=== PATIENT | female | born 1955 | race Caucasian/White ===

== ENCOUNTER 2020-01-10 15:42 | Inpatient (IN) | payer MEDICARE ==
[~2020-01-10] VITALS: Ht 162.6 cm; Wt 81.3 kg
[~2020-01-10 15:42] MED LIST: ANAPROX DS550 MG PO; HYDROCODON-ACE1 EACH PO; KEFLEX500 MG PO; MEDROL DOSPAK21 TA1 PO; NAPROXEN 500MG500 MG PO; NOHOMEMEDICATIONS; OS-CAL 500+D31 EAC1 PO; SYNTHROID137 MC1 PO; VALIUM5 MG PO; VICODIN 5-5001 EACH PO; VICODIN PO; ZANAFLEX4 M1 PO
[2020-01-10 16:03] VITALS: BP 106/64
[2020-01-10] MEDS ORDERED: OMEPRAZOLE40 MG PO (16:08)
[2020-01-10] MEDS ORDERED: CABOMETYX20 MG PO (16:08)
[2020-01-10] MEDS ORDERED: XARELTO20 MG PO (16:09)
[2020-01-10 16:24] LABS: URINE BILIRUBIN NEGATIVE (Negative); URINE BLOOD NEGATIVE (Negative); URINE COLOR YELLOW; URINE GLUCOSE-RANDOM NEGATIVE (Negative); URINE KETONES NEGATIVE (Negative); URINE LEUKOCYTES-REFLEX TRACE (Negative); URINE NITRITE-REFLEX NEGATIVE (Negative); URINE PROTEIN TRACE (Negative)
[2020-01-10 16:25] LABS: URINE CLARITY CLOUDY
[2020-01-10 16:30] LABS: BACTERIA-REFLEX >30 Many /HPF (None Seen); CASTS None Seen /LPF (None Seen); SQUAMOUS 0-3 Few /LPF (0-3); URINE RBC None Seen /HPF (0-2); URINE WBC-REFLEX >25 Many /HPF (0-5)
[2020-01-10 16:31] LABS: CRYSTALS None Seen /LPF (None Seen)
[2020-01-10 16:40] LABS: ABSOLUTE BASOPHILS 0.1 thou/uL (0.0-0.2); ABSOLUTE LYMPHOCYTES 0.5 thou/uL (0.8-5.3); ABSOLUTE MONOCYTES 0.2 thou/uL (0.0-1.2); ABSOLUTE NEUTROPHILS 3.5 thou/uL (1.6-8.1); BASOPHILS 1.2 %; EOSINOPHILS 0.4 %; HEMATOCRIT 27.3 % (37.0-47.0); HEMOGLOBIN 9.3 gm/dL (12.0-15.0); LYMPHOCYTES 11.9 %; MCH 28.7 pg (26.0-34.0); MCV 84.3 fL (80.0-100.0); MONOCYTES 4.6 %; MPV 7.4 fl. (7.2-11.1); NUCLEATED RBCS 0 /100WBC; PLATELET COUNT* 222 thou/uL (150-400); POLYS 81.9 %; RBC 3.24 mil/uL (4.20-5.00); WBC 4.2 thou/uL (4.0-11.0)
--- NOTE | 2020-01-10 16:41 | NUR ---
PUREWICK CATHETER APPLIED TO PATIENT.
[2020-01-10 16:56] LABS: CALCIUM 6.5 mg/dL (8.5-10.1); CREATININE 1.1 mg/dL (0.6-1.3)
[2020-01-10 16:58] LABS: APTT 45.8 Seconds (25.0-31.3); INR 2.3; PROTIME 22.7 Seconds (9.20-11.50)
[2020-01-10 17:07] LABS: PLATELET ESTIMATE ADEQUATE
[2020-01-10 17:08] LABS: ALBUMIN 1.6 g/dL (3.4-5.0); ANISOCYTOSIS 1+; MICROCYTES 1+; TOTAL BILIRUBIN 1.4 mg/dL (<0.1-1.0); TOTAL PROTEIN 5.5 g/dL (6.4-8.2)
[2020-01-10 17:09] LABS: POTASSIUM 2.8 mmol/L (3.5-5.1)
[2020-01-10 20:00] VITALS: BP 171/61
[2020-01-10 20:10] VITALS: BP 122/68
[2020-01-10 22:00] VITALS: BP 112/63
[2020-01-11] VITALS (7 sets, daily range): BP systolic 80–169; BP diastolic 61–80
[2020-01-11 04:57] LABS: ABSOLUTE LYMPHOCYTES 0.5 thou/uL (0.8-5.3); ABSOLUTE MONOCYTES 0.2 thou/uL (0.0-1.2); ABSOLUTE NEUTROPHILS 2.8 thou/uL (1.6-8.1); BASOPHILS 0.8 %; EOSINOPHILS 0.8 %; HEMATOCRIT 25.2 % (37.0-47.0); HEMOGLOBIN 8.5 gm/dL (12.0-15.0); LYMPHOCYTES 13.7 %; MCH 28.7 pg (26.0-34.0); MCHC 33.8 g/dL (28.0-37.0); MCV 85.1 fL (80.0-100.0); MONOCYTES 4.6 %; NUCLEATED RBCS 0 /100WBC; PLATELET COUNT* 186 thou/uL (150-400); POLYS 80.1 %; RBC 2.96 mil/uL (4.20-5.00); RDW-CV 26.9 % (10.5-14.5); WBC 3.5 thou/uL (4.0-11.0)
[2020-01-11 05:17] LABS: CALCIUM 6.4 mg/dL (8.5-10.1); MAGNESIUM 1.8 mg/dL (1.8-2.4); POTASSIUM 3.4 mmol/L (3.5-5.1)
--- NOTE | 2020-01-11 08:55 | NUR ---
Interview with patient at bedside. Lives at home with spouse. States spouse helps her with ADLS as needed. She no longer drives. She has W/C, Quad cane, and walker at home. Has HH already but she doesn't remember name of company.
--- NOTE | 2020-01-11 11:04 | NUR ---
ASSUMED CARE OF PATIENT THIS AM AT 0730. PATIENT IS ALERT AND ORIENTED X 4. SHE HAS BEEN TEARFUL AND TALKING IN A CRYING TONE. PATIENT IS INCONTINENT OF STOOL X 1. PATIENT PLACED IN ISOLATION FOR POSSIBLE CDIFF. BP LOW. 300 ML FLUID INFUSION GIVEN. PATIENT'S BP NOW IMPROVED. TELE SHOWS SR WITH OCCASIONAL PVCS.
--- NOTE | 2020-01-11 16:02 | EKG ---
[place] [address] ELECTROCARDIOGRAM REPORT Name: MI CHAUDHARY Room: [address] ADM IN [facility].#: [id number] Admission: 01/10/20 Attend Phys: Delgado Miller, Discharge: Date of : 53 Date of Service: 01/10/20 1613 Report #: [id number] THIS REPORT FOR: //name// [facility] ED Test Date: 2020-01-10 Test Time: 16:13:51 Pat Name: MI CHAUDHARY Department: Room: [facility] Gender: F [employer] B[employer]: ROLAN : 1955 Requested By: Salena Gruber Order Number: [id number] MD: Beto Fletcher Measurements Intervals Arnold Rate: 93 P: 105 OK: 131 QRS: -16 QRSD: 73 T: 166 QT: 392 QTc: 488 Interpretive Statements Sinus rhythm Ventricular premature complex Borderline left axis deviation Low voltage, extremity and precordial leads Nonspecific T abnormalities, lateral leads Borderline prolonged QT interval No previous ECG available for comparison Electronically Signed On 01-11-2020 16:02:31 CDT by Beto Fletcher [email or web address] <ELECTRONICALLY SIGNED> By: Beto Fletcher MD, FAC 01/11/20 1602 1613 1613 Beto Fletcher MD, FAC /EPI
[2020-01-12] VITALS (7 sets, daily range): BP systolic 110–128; BP diastolic 71–79
--- NOTE | 2020-01-12 04:51 | NUR ---
RECEIVED REPORT AND ASSUMED CARE OF PATIENT AT 1900. FULL ASSESSMENT COMPLETED CHARTED. BED LOCKED AND IN LOW POSITION, CALL LIGHT AND PERSONAL ITEMS IN REACH. PT A&OX4, SPO2 94 ON RA, SR ON MONITOR, PT HAS NOT AMBULATED THIS SHIFT.
[2020-01-12 04:56] LABS: ABSOLUTE LYMPHOCYTES 0.5 thou/uL (0.8-5.3); ABSOLUTE MONOCYTES 0.1 thou/uL (0.0-1.2); ABSOLUTE NEUTROPHILS 2.2 thou/uL (1.6-8.1); BASOPHILS 1.4 %; EOSINOPHILS 1.6 %; HEMATOCRIT 23.3 % (37.0-47.0); HEMOGLOBIN 7.8 gm/dL (12.0-15.0); LYMPHOCYTES 17.9 %; MCHC 33.4 g/dL (28.0-37.0); MCV 86.7 fL (80.0-100.0); MPV 7.6 fl. (7.2-11.1); NUCLEATED RBCS 0 /100WBC; PLATELET COUNT* 161 thou/uL (150-400); POLYS 74.1 %; RBC 2.69 mil/uL (4.20-5.00)
[2020-01-12 05:17] LABS: ALBUMIN 1.4 g/dL (3.4-5.0); CALCIUM 6.6 mg/dL (8.5-10.1); CREATININE 1.1 mg/dL (0.6-1.3); POTASSIUM 4.4 mmol/L (3.5-5.1); TOTAL PROTEIN 4.9 g/dL (6.4-8.2)
--- NOTE | 2020-01-12 17:08 | NUR ---
PATIENT RESTING IN BED. NO APPARENT SIGNS OF DISTRESS. PATIENT SUFFERS FROM ANXIETY AND REQUIRES EXTRA TIME FOR REASSURE HER. VSS. UP WITH ASSIST X1. HOURLY ROUNDING COMPLETED FOR PATIENT SAFETY.
[2020-01-13] VITALS: BP 102/57
[2020-01-13 04:00] VITALS: BP 112/70
[2020-01-13 05:07] LABS: ABSOLUTE EOSINOPHILS 0.1 thou/uL (0.0-0.7); ABSOLUTE LYMPHOCYTES 0.5 thou/uL (0.8-5.3); ABSOLUTE MONOCYTES 0.2 thou/uL (0.0-1.2); ABSOLUTE NEUTROPHILS 2.4 thou/uL (1.6-8.1); HEMOGLOBIN 7.5 gm/dL (12.0-15.0); LYMPHOCYTES 14.9 %; MCH 29.2 pg (26.0-34.0); MCHC 33.9 g/dL (28.0-37.0); MONOCYTES 4.9 %; MPV 7.6 fl. (7.2-11.1); NUCLEATED RBCS 0 /100WBC; PLATELET COUNT* 139 thou/uL (150-400); POLYS 77.2 %; RBC 2.56 mil/uL (4.20-5.00); RDW-CV 26.9 % (10.5-14.5); WBC 3.1 thou/uL (4.0-11.0)
--- NOTE | 2020-01-13 05:24 | NUR ---
RECEIVED REPORT AND ASSUMED CARE OF PT AT 1900. FULL ASSESSMENT COMPLETED CHARTED. BED LOCKED AND IN LOW POSITION, CALL LIGHT AND PERSONAL ITEMS IN REACH. NO ACUTE CHANGES THIS SHIFT.
[2020-01-13 05:37] LABS: ALBUMIN 1.2 g/dL (3.4-5.0); CALCIUM 6.8 mg/dL (8.5-10.1); POTASSIUM 4.2 mmol/L (3.5-5.1); TOTAL BILIRUBIN 0.9 mg/dL (<0.1-1.0); TOTAL PROTEIN 4.7 g/dL (6.4-8.2)
[2020-01-13 07:24] LABS: ANISOCYTOSIS 3+; PLATELET ESTIMATE ADEQUATE
[2020-01-13 08:00] VITALS: BP 112/72
[2020-01-13 12:00] VITALS: BP 123/80
--- NOTE | 2020-01-13 12:11 | NUR ---
ASSUMED CARE OF PATIENT THIS AM AT 0730. PATIENT IS ALERT AND ORIENTED X 4. SHE DENIES PAIN THIS AM. TELE SHOWS SR WITH PVCS. IV ANTIBIOTICS CONTINUED. PATIENTS O2 SAT WAS 86% ON ROOM AIR. O2 PLACED AT 2 LITERS. HER SAT IS NOW 97 TO 98%. PATIENT WAS INCONTINENT OF URINE THIS AM. SHE C/O CONTINUED DIARRHEA. PATIENT ENCOURAGED TO TURN Q 2 HR. HER APPETITE REMAINS POOR.
--- NOTE | 2020-01-13 12:15 | NUR ---
PT to see Pt today, CM to follow to determine if home with HH is still a viable dc plan. Pt has poor appetite per nurse and weak. Await therapy evals. Following.
--- NOTE | 2020-01-13 14:22 | NUR ---
informed CM that Pt is in agreement with hospice, order written and on the chart. CM went to speak with Pt, Pt became tearful and stated that she wants to speak with her first. CM to f/u re:hospice tomorrow. Updated nurse.
--- NOTE | 2020-01-13 15:40 | CON ---
[address] [address] CONSULTATION Name: MI CHAUDHARY Room: [address] IN .R.#: [id number] Admission: 01/10/20 Attend Phys: Delgado Miller MD Discharge: Date of : 53 Report #: [id number] THIS REPORT FOR: //name// cc: Beto Crawford John E. DO ~ THIS REPORT FOR: //name// CC: Delgado Crawford DATE OF SERVICE: 01/11/2020 REQUESTING PHYSICIAN: Delgado Miller MD REASON FOR CONSULTATION: Metastatic renal cell carcinoma. HISTORY OF PRESENT ILLNESS: The patient is an unfortunate 64-year-old woman with metastatic renal cell carcinoma, who is under care of Dr. Loyola and Dr. Meyer. She was initially treated with Keytruda and axitinib for first line of therapy by Dr. Loyola. After she progressed through this treatment, she was seen by Dr. Meyer on 12/28/2019 who recommended cabozantinib. The patient has been on cabozantinib. She was admitted to the hospital now with increasing dyspnea, increasing weakness. She was found to have severe UTI, pneumonitis. Oncology consult is requested. The patient is lethargic. She opens eyes, but she is not able to give me any history. According to notes, she is thinking to discontinue all care and wants to be DNR. PAST MEDICAL HISTORY: Significant for metastatic renal cell carcinoma to lung, hypothyroidism. REVIEW OF SYSTEMS: Unable to obtain. FAMILY HISTORY: Unable to obtain. PHYSICAL EXAMINATION: GENERAL: Reveals a thin woman, appearing chronically ill. VITAL SIGNS: Blood pressure 121/80, heart rate is 82, temperature 97.2. NECK: Supple. There is no supraclavicular lymphadenopathy. ABDOMEN: Soft. EXTREMITIES: Lower extremities, no edema. SKIN: Does not reveal any rash. LABORATORY DATA: White count 3.5, hemoglobin 8.5, platelets 180. Sodium 137, potassium 3.4, BUN 11, creatinine 1.0, total bilirubin 1.4, alkaline phosphatase 137. BNP 3670. TSH 67.8. Urinalysis shows large [place] [address] CONSULTATION Name: MI CHAUDHARY Room: [address]#: [id number] Admission: 01/10/20 Attend Phys: Delgado Miller MD Discharge: Date of : 53 Report #: [id number] ASSESSMENT AND PLAN: 1. Metastatic renal cell carcinoma. The patient is on oral targeted therapy. She appears chronically ill and somewhat cachectic. According to notes, her prognosis is poor. I do not have any suggestions at this point. If the patient wants to consider discontinuing care, this will be appropriate. If she wants to continue cabozantinib, she can continue cabozantinib after she recovers from current condition. 2. UTI. Agree with management. 3. Elevated TSH, most likely secondary to recent immunotherapy. 4. 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 Continue to monitor. Thank you very much for allowing me to participate in care of this patient. <ELECTRONICALLY SIGNED> By: Matthew Hicks MD 01/13/20 1540 [id number] [id number] Hicks MD /nt
[2020-01-13 17:44] VITALS: BP 117/68
[2020-01-13 20:10] VITALS: BP 117/68
[2020-01-14] VITALS: BP 116/76
[2020-01-14 04:00] VITALS: BP 120/75
--- NOTE | 2020-01-14 05:41 | NUR ---
RECEIVED REPORT AND ASSUMED CARE OF PATIENT AT 2220. FULL ASSESSMENT COMPLETED CHARTED. BED LOCKED AND IN LOW POSITION, CALL LIGHT AND PERSONAL ITEMS IN REACH. PT A&OX4, ON 2.5L NC (PT SATS 77 WITHOUT O2).
[2020-01-14 08:00] VITALS: BP 121/79
[2020-01-14 12:10] VITALS: BP 102/65
--- NOTE | 2020-01-14 13:42 | NUR ---
CM spoke with both Pt and in room. voiced [place], Pt did not respond when CM asked what she wants to do, Pt did say that she is concerned about not being able to take her chemo while in skilled. CM encouraged Pt and to discuss with their children what POC they want for Pt. Hospice order on chart if Pt decides that she wants hospice vs HH, Pt is current with [facility] f:[phone] p:[phone]. Updated nurse.
[2020-01-14 16:06] VITALS: BP 108/66
--- NOTE | 2020-01-14 16:08 | NUR ---
VS CHARTED, A&OX4- ANXIOUS, NC@2L, SR W/PVCS ON TELE, BEDREST- UP WITH ONE TO COMMODE, HOURLY ROUNDING PERFORMED, POSSESSIONS AND CALL LIGHT WITHIN REACH, USES BEDPAN FOR B&B
[2020-01-14 20:34] VITALS: BP 119/68
[2020-01-15 00:35] VITALS: BP 109/50
[2020-01-15 04:07] VITALS: BP 100/67
[2020-01-15 05:17] LABS: ABSOLUTE LYMPHOCYTES 0.5 thou/uL (0.8-5.3); ABSOLUTE MONOCYTES 0.2 thou/uL (0.0-1.2); BASOPHILS 0.8 %; EOSINOPHILS 1.1 %; HEMATOCRIT 25.9 % (37.0-47.0); HEMOGLOBIN 8.8 gm/dL (12.0-15.0); LYMPHOCYTES 13.6 %; MCH 29.5 pg (26.0-34.0); MCV 86.7 fL (80.0-100.0); MONOCYTES 5.6 %; NUCLEATED RBCS 0 /100WBC; PLATELET COUNT* 146 thou/uL (150-400); POLYS 78.9 %; RBC 2.99 mil/uL (4.20-5.00); RDW-CV 26.1 % (10.5-14.5); WBC 3.8 thou/uL (4.0-11.0)
[2020-01-15 05:51] LABS: ALBUMIN 1.1 g/dL (3.4-5.0); CALCIUM 7.1 mg/dL (8.5-10.1); CREATININE 0.8 mg/dL (0.6-1.3); MAGNESIUM 1.8 mg/dL (1.8-2.4); POTASSIUM 3.8 mmol/L (3.5-5.1); TOTAL BILIRUBIN 0.9 mg/dL (<0.1-1.0); TOTAL PROTEIN 4.8 g/dL (6.4-8.2)
[2020-01-15 07:03] LABS: PLATELET ESTIMATE DECREASED
[2020-01-15 07:05] LABS: ANISOCYTOSIS 3+; HYPOCHROMASIA 2+; MICROCYTES 2+; SCHISTOCYTES 1+
--- NOTE | 2020-01-15 08:14 | NUR ---
PT IS ABLE TO COMMUNICATE HER NEEDS TO STAFF EFFECTIVELY. SHE HAS DENIED THE NEED FOR PAIN MEDICATION UP TO 0700 THIS MORNING. PT SEEMS DEPRESSED AND HAS A FLAT AFFECT.
[2020-01-15 08:15] VITALS: BP 106/57
[2020-01-15 12:29] VITALS: BP 84/36
[2020-01-15 15:57] VITALS: BP 87/50
--- NOTE | 2020-01-15 19:42 | NUR ---
I ASSUMED CARE OF THE PATIENT AT 0700. SHE IS ALERT AND ORIENTED X4 AND IS UP WITH ASSIST OF 1 AND A WALKER. BED IS IN THE LOW LOCKED POSITION AND CALL LIGHT IS IN REACH. HOURLY ROUNDING IS COMPLETED AND PATIENT NEEDS ARE MET. PAIN IS DENIED. AFFECT IS VERY FLAT AND DEPRESSED. DAUGHTER IS A [employer] NURSE AND IS AT THE BEDSIDE MOST OF THE DAY. OXYGEN WAS TITRATED DOWN AND REMOVED FOR MOST OF THE DAY. AROUND 1800, IT WAS PLACED BACK ON AT 0.5 LITERS WHICH TAKES HER FROM 86%-98%. NEW PULSE OX WAS PLACED ON THE FOOT UNDER A SOCK TO KEEP HER SKIN WARM. SHE IS REPOSITIONED EVERY 2 HOURS. SKIN IS INTACT. SHE DID NOT HAVE A BOWEL MOVEMENT TODAY. NEW IV WAS PLACED IN THE LEFT WRIST AND IS BEING USED FOR ZOSYN. DAUGHTER IS AT THE BEDSIDE WAITING TO SEE IF HEMOC IS COMING TODAY. SHE IS VERY PALE AND TIRED. WILL CONTINUE TO MONITOR.
[2020-01-15 20:00] VITALS: BP 123/80
[2020-01-16] VITALS (7 sets, daily range): BP systolic 94–112; BP diastolic 54–76
--- NOTE | 2020-01-16 16:03 | NUR ---
PT HAS RESTED QUIETLY, NO C/O PAIN OR DISTRESS. PT EXPERIENCED BRIEF NOSEBLEED WITH SCANT AMOUNT OF BLOODY DISCHARGE. NOSE BLEED STOPPED WITH MILD COMPRESSION APPLIED BY PATIENT.
--- NOTE | 2020-01-16 17:42 | NUR ---
CARING FOR PT [phone]. ASSESSMENT COMPLETED. PT VERY WEAK WITH LOW VOICE. AT BEDSIDE. ASSISTING WITH REPOSITIONING. JACE ANKLES AND FEET WITH 2+ EDEMA. TELEMETRY ON SHOWING SR. NO COMPLAINTS VOICED.
[2020-01-17] VITALS: BP 103/61
[2020-01-17 04:00] VITALS: BP 101/53
[2020-01-17 05:15] LABS: ALBUMIN 1.2 g/dL (3.4-5.0); CALCIUM 7.1 mg/dL (8.5-10.1); CREATININE 0.9 mg/dL (0.6-1.3); MAGNESIUM 1.8 mg/dL (1.8-2.4); POTASSIUM 3.7 mmol/L (3.5-5.1); TOTAL BILIRUBIN 0.9 mg/dL (<0.1-1.0); TOTAL PROTEIN 4.5 g/dL (6.4-8.2)
[2020-01-17 06:23] LABS: HEMATOCRIT 24.4 % (37.0-47.0); HEMOGLOBIN 8.2 gm/dL (12.0-15.0); MCH 29.6 pg (26.0-34.0); MCHC 33.5 g/dL (28.0-37.0); MCV 88.4 fL (80.0-100.0); MPV 8.5 fl. (7.2-11.1); RBC 2.76 mil/uL (4.20-5.00); RDW-CV 26.1 % (10.5-14.5)
[2020-01-17 08:00] VITALS: BP 114/61
[2020-01-17 12:00] VITALS: BP 98/59
--- NOTE | 2020-01-17 16:47 | NUR ---
JERRY RESTING IN BED. UP WITH ASSIST X1. PRIMARY MD HAD A LONG DICUSSONO WITH PATIENT AND HER REGARDIONG HER EXPECTATIONS FOR TREATMETN AT HOME AND ANY DESIRE THEY HAVE FOR REHAB, [facility], HOSPICE. VSS AND PATINET IN NOAPPARNET SIGNS OD ACUTE DISTRESS AT THIS TIME.
[2020-01-17 20:00] VITALS: BP 105/66
[2020-01-18 00:30] VITALS: BP 104/66
[2020-01-18 04:30] VITALS: BP 106/61
[2020-01-18 05:15] LABS: ABSOLUTE LYMPHOCYTES 0.4 thou/uL (0.8-5.3); ABSOLUTE MONOCYTES 0.2 thou/uL (0.0-1.2); ABSOLUTE NEUTROPHILS 3.4 thou/uL (1.6-8.1); BASOPHILS 1.1 %; EOSINOPHILS 1.2 %; HEMATOCRIT 21.7 % (37.0-47.0); HEMOGLOBIN 7.4 gm/dL (12.0-15.0); LYMPHOCYTES 10.3 %; MCH 29.8 pg (26.0-34.0); MCHC 34.3 g/dL (28.0-37.0); MONOCYTES 5.1 %; MPV 8.1 fl. (7.2-11.1); NUCLEATED RBCS 0 /100WBC; PLATELET COUNT* 120 thou/uL (150-400); POLYS 82.3 %; RBC 2.49 mil/uL (4.20-5.00); RDW-CV 26.1 % (10.5-14.5); WBC 4.1 thou/uL (4.0-11.0)
[2020-01-18 05:46] LABS: ALBUMIN 1.7 g/dL (3.4-5.0); CREATININE 0.9 mg/dL (0.6-1.3); MAGNESIUM 2.1 mg/dL (1.8-2.4); POTASSIUM 3.2 mmol/L (3.5-5.1); TOTAL BILIRUBIN 1.1 mg/dL (<0.1-1.0); TOTAL PROTEIN 4.9 g/dL (6.4-8.2)
[2020-01-18 06:39] LABS: ANISOCYTOSIS 2+; MICROCYTES 1+; PLATELET ESTIMATE ADEQUATE
[2020-01-18 08:00] VITALS: BP 95/56
[2020-01-18 12:24] VITALS: BP 96/59
[2020-01-18 15:58] VITALS: BP 102/62
[2020-01-18 17:37] LABS: CALCIUM 7.3 mg/dL (8.5-10.1); CREATININE 1.1 mg/dL (0.6-1.3); POTASSIUM 3.5 mmol/L (3.5-5.1)
--- NOTE | 2020-01-18 18:59 | NUR ---
PATIENT RESTING IN BED. VSS. UP WITH ASSSIT X1.
[2020-01-18 20:00] VITALS: BP 111/63
[2020-01-19] VITALS: BP 118/63
[2020-01-19 04:00] VITALS: BP 94/59
[2020-01-19 05:22] LABS: ABSOLUTE LYMPHOCYTES 0.4 thou/uL (0.8-5.3); ABSOLUTE MONOCYTES 0.2 thou/uL (0.0-1.2); ABSOLUTE NEUTROPHILS 3.2 thou/uL (1.6-8.1); BASOPHILS 1.1 %; EOSINOPHILS 1.1 %; HEMATOCRIT 21.5 % (37.0-47.0); HEMOGLOBIN 7.3 gm/dL (12.0-15.0); LYMPHOCYTES 10.5 %; MCHC 34.2 g/dL (28.0-37.0); MCV 87.8 fL (80.0-100.0); MONOCYTES 6.2 %; MPV 8.3 fl. (7.2-11.1); NUCLEATED RBCS 0 /100WBC; PLATELET COUNT* 119 thou/uL (150-400); POLYS 81.1 %; RBC 2.45 mil/uL (4.20-5.00); RDW-CV 26.6 % (10.5-14.5); WBC 3.9 thou/uL (4.0-11.0)
[2020-01-19 05:39] LABS: ALBUMIN 1.8 g/dL (3.4-5.0); CREATININE 0.9 mg/dL (0.6-1.3); MAGNESIUM 1.9 mg/dL (1.8-2.4); POTASSIUM 3.7 mmol/L (3.5-5.1); TOTAL BILIRUBIN 1.3 mg/dL (<0.1-1.0)
[2020-01-19 08:00] VITALS: BP 96/65
[2020-01-19 08:01] LABS: POLYCHROMASIA 1+
[2020-01-19 08:02] LABS: ANISOCYTOSIS 3+; PLATELET ESTIMATE ADEQUATE
--- NOTE | 2020-01-19 09:48 | NUR ---
RECIEVED REPORT AROUND 729. ASSUMED CARE. PT LYING LYING BED. PT ANXIOUS. VS AND ASSESSMENT CHARTED. PT REPEATING "WHERE IS IT" "WHERE DOES IT GO" THIS AM. PT ABLE TO ANSWER ORIENTATION QUESTIONS. PT STATED "NO" TO ANY PAIN. AM MEDS GIVEN THIS AM. MEDICATION PER JUN. IV INTACT LEFT WRIST. HEART MONITOR ATTACHED. CALL LIGHT WITHIN REACH. WILL CONTINUE TO MONITOR.
[2020-01-19 13:01] VITALS: BP 98/57
[2020-01-19 15:58] VITALS: BP 91/62
--- NOTE | 2020-01-19 18:12 | NUR ---
NO NEW CHANGES FROM MORNING ASSESSMENT. SON VISITED THIS SHIFT. AT BEDSIDE. PT LYING IN BED. MEDICATIONS PER JUN. HOURLY ROUNDING PERFORMED. IV INTACT. LEFT WRIST. HEART MONITOR ATTACHED AT SR WITH PVC'S. PT ON 1L NC. NO REPORTS OF PAIN. CALL LIGHT WITHIN REACH. WILL CONTINUE TO MONITOR.
[2020-01-19 19:30] VITALS: BP 125/68
[2020-01-20] VITALS (10 sets, daily range): BP systolic 89–116; BP diastolic 41–84
[2020-01-20 05:16] LABS: ABSOLUTE LYMPHOCYTES 0.4 thou/uL (0.8-5.3); ABSOLUTE MONOCYTES 0.3 thou/uL (0.0-1.2); BASOPHILS 1.1 %; HEMATOCRIT 20.1 % (37.0-47.0); LYMPHOCYTES 11.6 %; MCHC 33.7 g/dL (28.0-37.0); MCV 89.2 fL (80.0-100.0); MONOCYTES 6.8 %; MPV 8.4 fl. (7.2-11.1); NUCLEATED RBCS 0 /100WBC; PLATELET COUNT* 123 thou/uL (150-400); POLYS 79.5 %; RBC 2.26 mil/uL (4.20-5.00); RDW-CV 26.2 % (10.5-14.5); WBC 3.8 thou/uL (4.0-11.0)
[2020-01-20 05:23] LABS: CREATININE 0.8 mg/dL (0.6-1.3); MAGNESIUM 1.9 mg/dL (1.8-2.4); POTASSIUM 3.7 mmol/L (3.5-5.1)
[2020-01-20 05:24] LABS: HEMOGLOBIN 6.8 gm/dL (12.0-15.0)
[2020-01-20 06:46] LABS: HYPOCHROMASIA 2+; PLATELET ESTIMATE DECREASED
[2020-01-20 06:47] LABS: ANISOCYTOSIS 3+; MACROCYTES 1+; MICROCYTES 2+
[2020-01-20] MEDS ORDERED: MIDODRINE HCL 55 M1 PO (09:49)
[2020-01-20] MEDS ORDERED: FLORASTOR250 MG PO (09:49)
[2020-01-20] MEDS ORDERED: MARINOL 2.5 MG2.5 M1 PO (09:49)
--- NOTE | 2020-01-20 12:08 | NUR ---
0730 ASSUMED CARE OF PATIENT. PLEASE SEE DOCUMENTED ASSESSMENT. PT TO RECEIVE A UNIT OF BLOOD. CONSENT OBTAINED.
--- NOTE | 2020-01-20 13:11 | CON ---
[address] [address] CONSULTATION Name: JETMI Brody Room: [address] IN [facility]#: [id number] Admission: 01/10/20 Attend Phys: Delgado Miller MD Discharge: Date of : 53 Report #: [id number] THIS REPORT FOR: //name// cc: Beto Crawford John E. DO ~ THIS REPORT FOR: //name// CC: Delgado Crawford DATE OF SERVICE: 01/14/2020 CONSULT REQUESTED BY: Dr. Contreras. INDICATION FOR CONSULTATION: Renal cell carcinoma with lung metastasis. HISTORY OF PRESENT ILLNESS: This is a 64-year-old female with past medical history includes a history of renal cell carcinoma with lung metastasis. This time, the patient is admitted on 01/10/2020. The patient is noted to have a UTI upon admission. The patient is also being treated for pulmonary infiltrates. Currently, the patient is hemodynamically stable. Blood pressure is within the normal range, although towards the lower side. She is on 2 liters of oxygen and is maintaining O2 saturation in the high 90s. She does have swelling of lower extremities, which is more on the left than the right. The patient is on anticoagulation with Xarelto. The reason why the patient is on anticoagulation is not known to me at this time. The patient does report shortness of breath, but does not report any recent change in shortness of breath. She does have a cough, but not much sputum. There is no chest pain. She does not have upper respiratory complaints. The patient is afebrile. REVIEW OF SYSTEMS: I asked her 12 questions for review of systems. The patient answers to the negative except as mentioned above. PAST MEDICAL HISTORY: Renal cell carcinoma with metastasis to lungs, thyroidectomy, goiter, dizziness/problems with balance, broken ankle in 2010. The patient is noted to be on Xarelto 20 mg daily at home. The reason why she was started on Xarelto is not known to me. Severe malnutrition. The patient's albumin is 1.2. SOCIAL HISTORY: There is no known history of smoking, ethanol abuse or drug abuse. CURRENT MEDICATIONS: List in [facility] reviewed. HOME MEDICATIONS: List also in [facility] [place] [address] CONSULTATION Name: MI CHAUDHARY Brody Room: [address]#: [id number] Admission: 01/10/20 Attend Phys: Delgado Miller MD Discharge: Date of : 53 Report #: [id number] FAMILY HISTORY: There is no pertinent family history. PHYSICAL EXAMINATION: GENERAL: The patient is alert, awake, and oriented, does appear to be pale. VITAL SIGNS: Has a pulse of 80 and a blood pressure of 108/66. She is on 2 liters oxygen via nasal cannula, saturating 98%. She is afebrile with a temperature of 36.7. HEENT: Head is normocephalic and atraumatic. Pupils are equal and reactive. There is no throat erythema. There is no thrush in her throat. NECK: Does not show raised JVP, asymmetry, mass, or lymph nodes. CHEST: Symmetrical expansion on inspection and palpation. On auscultation, breath sounds are diminished at bilateral lung bases. The rest of the chest is clear. HEART: Regular. There is no murmur. ABDOMEN: Soft and nontender. EXTREMITIES: She has 2+ edema on the left side. There is 1+ edema on the right side. There is no calf tenderness. SKIN: However, is dry and intact. NEUROLOGICAL: She did move all extremities bilaterally equally and spontaneously with no focal deficit identified. IMAGING STUDIES: The patient did have a CT chest without contrast performed on 01/10/2020. It is consistent with pleural metastasis, which is consistent with the patient's known history. There are also pleural effusions consistent with fluid overload, pulmonary infiltrates, more at the left lung base with some at the right lung base as well are also identified. LABORATORY DATA: The patient's lab work including CBC as well as chemistries are in [facility], last performed yesterday reviewed. Urinalysis performed on admission in [facility] reviewed. Clostridium difficile PCR is negative. COVID-19 screen is negative. Coagulation studies show an INR of 2.3. ASSESSMENT AND PLAN: 1. Renal cell carcinoma with metastasis to lungs. The patient is reported to have a known history of this. CT chest findings are consistent with this. I agree with current management as per the primary service and Hematology. I will repeat a chest x-ray as well as labs for tomorrow morning. I will review and then advise further. 2. Pulmonary infiltrates. The patient is on Zosyn. I agree. 3. Bilateral pleural effusions. These appear to be primarily secondary to fluid overload due to severe malnutrition. The patient's albumin is decreased to 1.2. Should a significant increase in size of these pleural effusions occur, we can consider taking her off Xarelto and performing thoracentesis. I favor holding off for now. We will also do an echo as I do not have any measure of her left ventricular ejection fraction. Administration of furosemide in combination with 25% albumin could lead to temporary improvement in the [place] [address] CONSULTATION Name: MI CHAUDHARY Room: [address] IN ..#: [id number] Admission: 01/10/20 Attend Phys: Delgado Miller MD Discharge: Date of : 53 Report #: [id number] patient's fluid overload and pleural effusions. I would defer to the primary service if this is considered. 4. Long-term anticoagulation with Xarelto noted. Also noted an INR of 2.3. Hematology Service is following. 5. Urinary tract infection. Thanks for this consultation. <ELECTRONICALLY SIGNED> By: Kumar Mcclain MD 01/20/20 1311 1635 [id number] Mcclain MD /nt
--- NOTE | 2020-01-20 15:58 | NUR ---
CM SPOKE TO BOTH PT AND SPOUSE IN THE ROOM TO DISCUSS DISCHARGE PLANNING AND HER D/C HOME TODAY WITH HH. PT'S SPOUSE INFOMS THAT HE HAS DISCUSSED PT'S SITUTAION WITH HER ONCOLOGIST AND HE AGREES THAT THE PT 'SHOULD GO HOME WITH HOSPICE'. PT AND SPOUSE IN AGREEMENT. CM SPOKE TO RN AND PHYSICIAN TO DISCUSS THIS AND BOTH ARE IN AGREEMENT. PT D/C ON HOLD FOR TODAY TO ALLOW CM TIME TO ARRANGE HOSPICE AND NEEDED DME (HOME O2, HOSPITAL BED) PRIOR TO D/C. CM PROVIDED PT WITH OPTIONS FOR HOSPICE AND AGREED TO HAVE REFERRAL SENT TO [facility]. CM INFORMED [facility] OF REFERRAL AND FAXED PT'S CLINICAL INFO. [facility] CABLE SWAGER TO CALL PT'S SPOUSE TO PROVIDE INFO AND ARRANGE DME. CM WILL REMAIN AVAILABLE TO ASSIST AND FOLLOW NEEDED. [facility] PHONE: [phone] FAX: [phone]
--- NOTE | 2020-01-20 18:33 | NUR ---
PATIENT MAKING SOME PROGRESS TOWARDS GOALS THOUGH GOALS ARE ADJUSTED. TRANSFUSED THIS AM WITHOUT INCIDENT. PLAN WAS TO GO HOME WITH HOME HEALTH BUT CHANGED TO PLAN FOR HOSPICE DISCHARGE TOMORROW. PATIENT IS AGREEABLE. ROOM AIR SAT IS 89% SO HAVE USED OXYGEN PRN PATIENT PREFERS. DENIES PAIN. SON AND SPOUSE HAVE VISITED.
[2020-01-20 20:29] LABS: HEMATOCRIT 26.2 % (37.0-47.0)
[2020-01-20 20:30] LABS: HEMOGLOBIN 9.1 gm/dL (12.0-15.0)
[2020-01-21] VITALS: BP 106/66
[2020-01-21 04:00] VITALS: BP 110/57
[2020-01-21 05:19] LABS: ABSOLUTE LYMPHOCYTES 0.5 thou/uL (0.8-5.3); ABSOLUTE MONOCYTES 0.3 thou/uL (0.0-1.2); ABSOLUTE NEUTROPHILS 3.9 thou/uL (1.6-8.1); BASOPHILS 0.6 %; EOSINOPHILS 0.9 %; HEMATOCRIT 26.8 % (37.0-47.0); HEMOGLOBIN 9.2 gm/dL (12.0-15.0); LYMPHOCYTES 10.5 %; MCH 29.1 pg (26.0-34.0); MCHC 34.2 g/dL (28.0-37.0); MCV 84.9 fL (80.0-100.0); MONOCYTES 6.4 %; MPV 8.2 fl. (7.2-11.1); NUCLEATED RBCS 0 /100WBC; PLATELET COUNT* 138 thou/uL (150-400); POLYS 81.6 %; RBC 3.16 mil/uL (4.20-5.00); RDW-CV 25.8 % (10.5-14.5); WBC 4.7 thou/uL (4.0-11.0)
[2020-01-21 05:39] LABS: ALBUMIN 1.5 g/dL (3.4-5.0); CALCIUM 7.3 mg/dL (8.5-10.1); CREATININE 0.9 mg/dL (0.6-1.3); MAGNESIUM 1.9 mg/dL (1.8-2.4); POTASSIUM 3.5 mmol/L (3.5-5.1); TOTAL BILIRUBIN 1.1 mg/dL (<0.1-1.0); TOTAL PROTEIN 4.8 g/dL (6.4-8.2)
[2020-01-21 07:24] LABS: PLATELET ESTIMATE DECREASED
[2020-01-21 07:25] LABS: HYPOCHROMASIA 1+; POLYCHROMASIA 1+
[2020-01-21 07:26] LABS: OVALOCYTES 1+
[2020-01-21 07:27] LABS: ANISOCYTOSIS 2+; MACROCYTES Occasional; MICROCYTES Occasional; POIKILOCYTOSIS 1+
[2020-01-21 08:00] VITALS: BP 108/63
[2020-01-21 12:02] VITALS: BP 100/55
[2020-01-21] MEDS ORDERED: RESTASIS1 EACH (12:36)
--- NOTE | 2020-01-21 13:39 | NUR ---
ASSUMED PT CARE AT 0730, PT AOX4 AND HAS NO C/O PAIN OR SHORTNESS OF BREATH. PT TRYING TO BE TURNED Q2H BUT REFUSES TURNS, NO BREAKDOWN ON BACKSIDE NOTED. DC ORDERS RECEIVED TO SENT PT HOME ON HOSPICE. DC INSTRUCTIONS, CARE NOTES, SCRIPTS AND F/U APPTS GIVEN TO PT. IV AND DIVISION SERVICE MANAGER REMOVED. PT COMMUNICATES UNDERSTANDING OF DC TEACHING. PT DC'D BY CART W/ EMS AT APPROX 1350
--- NOTE | 2020-01-21 13:56 | NUR ---
ADE SPOKE TO PT AND SPOUSE TO FINALIZE D/C PLANNING WITH PLAN TO D/C PT HOME TODAY WITH [facility]. ADE SPOKE TO RN WITH [facility] AND SHE INFORMS THAT ALL DME HAS BEEN DELIVERED AND RN WILL MEET PT AT THE HOME. CM ARRNAGED [facility] TRANSPORT FOR 1400. RN INFORMED OF ALL OF THE ABOVE INFO AND IS IN AGREEMENT WITH THE PLAN. CM WILL REMAIN AVAILABLE TO ASSIST AND FOLLOW NEEDED. [facility] PHONE: [phone] FAX: [phone]
== END 2020-01-21 13:50 | disposition hospice, home (50) | DRG 871 ==
LOC: M.ERS 15:42 → M.TBA-ER 18:59 → M.2W 18:59
PROVIDERS: Family Medicine; Internal Medicine; Internal Medicine Critical Care Medicine; Nurse Practitioner Family; ADMIT Internal Medicine; ATTEND Internal Medicine
PROC: 30233N1 Transfusion of Nonautologous Red Blood Cells into Peripheral Vein, Percutaneous Approach (ICD-10-PCS; principal; 2020-01-20)
DX: A41.81 Sepsis due to Enterococcus (principal); E43 Unspecified severe protein-calorie malnutrition; J69.0 Pneumonitis due to inhalation of food and vomit; J96.01 Acute respiratory failure with hypoxia; N39.0 Urinary tract infection, site not specified; C64.2 Malignant neoplasm of left kidney, except renal pelvis; C78.02 Secondary malignant neoplasm of left lung; D72.819 Decreased white blood cell count, unspecified; E03.9 Hypothyroidism, unspecified; B96.89 Other specified bacterial agents as the cause of diseases classified elsewhere; E87.6 Hypokalemia; R60.9 Edema, unspecified; R63.0 Anorexia; D64.9 Anemia, unspecified; T50.995A Adverse effect of other drugs, medicaments and biological substances, initial encounter; I95.9 Hypotension, unspecified; Z66 Do not resuscitate; Z20.828 Contact with and (suspected) exposure to other viral communicable diseases; Z51.5 Encounter for palliative care; Y92.89 Other specified places as the place of occurrence of the external cause; Z68.30 Body mass index [BMI] 30.0-30.9, adult; Z79.899 Other long term (current) drug therapy